=== PATIENT | female | born 2000 | race Two or more races ===

== ENCOUNTER 2023-05-14 14:31 | Outpatient (CLI) | payer BC | END 2023-05-14 14:32 | disposition home or self-care (01) | LOC: RAD 14:31 | PROVIDERS: ATTEND Family Medicine | DX: M54.50 Low back pain, unspecified (principal); M25.551 Pain in right hip; M25.552 Pain in left hip; M41.86 Other forms of scoliosis, lumbar region | CPT/HCPCS: 72100 ==

== ENCOUNTER 2024-01-02 14:44 | Outpatient (CLI) | payer OTHER | END 2024-01-02 14:45 | disposition home or self-care (01) | LOC: BICRAD 14:44 | PROVIDERS: ATTEND Internal Medicine Rheumatology | DX: M54.50 Low back pain, unspecified (principal); M53.3 Sacrococcygeal disorders, not elsewhere classified; M25.50 Pain in unspecified joint; R76.0 Raised antibody titer; M41.9 Scoliosis, unspecified; M48.8X6 Other specified spondylopathies, lumbar region; M48.8X7 Other specified spondylopathies, lumbosacral region | CPT/HCPCS: 72100; 72202 ==